=== PATIENT | male | born 1970 | race Caucasian/White ===

== ENCOUNTER 2020-04-07 21:24 | Emergency (ER) | payer SELFPAY ==
[~2020-04-07] VITALS: Ht 170.2 cm; Wt 102.1 kg
[2020-04-07 21:38] VITALS: BP 158/103
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
--- NOTE | 2020-04-07 22:05 | NUR ---
PT REFUSED TO BE SEEN BY ER TERE ROJAS. ALL RISKS EXPLAINED TO PT, INCLUDING . PT AAOX4, VERBALIZE UNDERSTANDING. PT SIGNED OUT AMA.
== END 2020-04-07 22:15 | disposition left against medical advice (07) ==
LOC: ER 21:29
DX: R07.89 Other chest pain (principal); Z98.890 Other specified postprocedural states; V49.49XA Driver injured in collision with other motor vehicles in traffic accident, initial encounter; Y93.89 Activity, other specified; Y92.413 State road as the place of occurrence of the external cause; Y99.8 Other external cause status